=== PATIENT | female | born 1960 | race Caucasian/White ===

== ENCOUNTER 2019-10-02 00:12 | Outpatient (REF) | payer BC, SELFPAY | END 2019-10-02 00:32 | LOC: NCHCN 00:12 | PROVIDERS: PCP Nurse Practitioner Adult Health; Visit Provider Family Medicine | DX: N39.0 Urinary tract infection, site not specified (principal) | CPT/HCPCS: 87086 ==

== ENCOUNTER 2020-04-11 20:19 | Outpatient (REF) | payer BC, SELFPAY ==
[2020-04-11 15:10] LABS: HCT 44.3 % (36.0-46.0); HGB 14.1 g/dL (12.0-15.5); Mean Corp. HGB Concentration 31.8 g/dL (32.0-36.0); Mean Corpuscular Hemoglobin 27.1 pg (27.0-33.0); Mean Platelet Volume 10.7 fL (8.0-11.0); Platelet Count 223 x1000/uL (130-400); RBC 5.21 m/cumm (4.00-5.20); RBC Distribution Width 16.9 % (11.7-14.6); White Blood Cell Count 5.61 k/cumm (4.4-10.8)
[2020-04-11 16:06] LABS: ALT 116 U/L (14-59); AST 134 U/L (15-37); Albumin 4.2 g/dL (3.4-5.0); Alkaline Phosphatase 78 U/L (46-116); BUN 11 mg/dL (7-18); Bilirubin, Total 0.5 mg/dL (0.2-1.0); CREATININE 0.65 mg/dL (0.55-1.02); Calcium 9.3 mg/dL (8.5-10.1); Chloride 102 mmol/L (98-107); Glucose 154 mg/dL (74-106); Potassium 3.8 mmol/L (3.5-5.1); Sodium 139 mmol/L (136-145); Total Protein 7.6 g/dL (6.4-8.2); Vitamin B12 798 pg/mL (193-986)
[2020-04-12 13:55] LABS: Syphilis Serology (RPR) Negative (Negative)
== END 2020-04-11 20:39 ==
LOC: NCHCN 20:19
PROVIDERS: PCP Nurse Practitioner Adult Health; Visit Provider Family Medicine
DX: R41.3 Other amnesia (principal); E03.9 Hypothyroidism, unspecified; E11.9 Type 2 diabetes mellitus without complications; K75.81 Nonalcoholic steatohepatitis (NASH)
CPT/HCPCS: 80053; 85027; 82607; 84443; 86592

== ENCOUNTER 2023-03-06 18:18 | Outpatient (REF) | payer OTHER, SELFPAY ==
[2023-03-06 19:58] LABS: Albumin 4.2 g/dL (3.4-5.0); Calcium 9.4 mg/dL (8.5-10.1)
[2023-03-06 20:20] LABS: Vitamin D 25 Total 55.7 ng/mL (30-100)
[2023-03-08 02:13] LABS: Parathyroid Hormone,Intact 13 pg/mL (19-88)
== END 2023-03-06 18:19 | disposition home or self-care (01) ==
LOC: NCHCN 18:18
PROVIDERS: PCP Nurse Practitioner Adult Health; Visit Provider Family Medicine
DX: E83.52 Hypercalcemia (principal); E03.9 Hypothyroidism, unspecified
CPT/HCPCS: 82306; 82040; 82310; 83970

== ENCOUNTER 2023-06-04 16:20 | Outpatient (REF) | payer OTHER, SELFPAY ==
--- NOTE | 2023-06-04 16:00 | PAPFT_PTH ---
PATIENT: Evangelina Barroso LOC: [facility]#:[id number] AGE/SX: 63/F ROOM: RE06/04/[address]: Saud Betts : 1960 BED: DIS: 06/04/2023 SPEC #: [id number] RECD: 06/05/23 12:44 STATUS: ERIC RERaleigh #: [id number] RAPHAEL: 06/04/23 16:[address]: Saud Betts DEPT: [facility] Cytology RECD BY: Niru Saleh ENTERED: 06/05/23 12:44 SP TYPE: PAPFT OTHR DR: Ruth Manning Tissues: 1 - CX/ENDOCX FOR PAP SMEARS Procedures: PAP THIN PREP/[facility] Screening HPV DNA PROBE Comments: [id number]
== END 2023-06-04 16:21 | disposition home or self-care (01) ==
LOC: NCHCN 16:20
PROVIDERS: PCP Nurse Practitioner Adult Health; Visit Provider Family Medicine
DX: Z00.00 Encounter for general adult medical examination without abnormal findings (principal); Z12.4 Encounter for screening for malignant neoplasm of cervix; Z11.51 Encounter for screening for human papillomavirus (HPV); F31.9 Bipolar disorder, unspecified; F41.8 Other specified anxiety disorders; E55.9 Vitamin D deficiency, unspecified
CPT/HCPCS: 88142; 87624

== ENCOUNTER 2024-12-21 15:28 | Outpatient (REF) | payer OTHER, SELFPAY ==
[2024-12-21 16:36] LABS: COMMENT (LAB VIEW ONLY) 86.23 mg/dL; Microalb ug/mg Crea 15.5 ug/mg Cr
== END 2024-12-21 15:29 | disposition home or self-care (01) ==
LOC: NCHCN 15:28
PROVIDERS: PCP Nurse Practitioner Adult Health; Visit Provider Student in an Organized Health Care Education/Training Program
DX: E11.9 Type 2 diabetes mellitus without complications (principal)
CPT/HCPCS: 82043; 82570

== ENCOUNTER 2025-03-22 12:58 | Outpatient (REF) | payer OTHER, SELFPAY ==
[2025-03-22 17:09] LABS: HCT 41.6 % (36.0-46.0); HGB 13.2 g/dL (11.2-15.7); MCH 27.2 pg (27.0-33.0); MCHC 31.7 % (32.0-36.0); MCV 86 fL (80-95); Platelet Count 217 10^3/uL (130-400); RBC 4.86 10^6/uL (3.93-5.22); RDW 15.9 % (11.7-14.6); RDW-SD 49.8 fL; WBC 4.62 10^3/uL (4.4-10.8)
[2025-03-22 17:27] LABS: ALT 114 U/L (14-59); AST 99 U/L (15-37); Albumin 3.8 g/dL (3.4-5.0); Alkaline Phosphatase 64 U/L (46-116); Anion Gap 10.7 mmol/L (3-11); BUN 11 mg/dL (7-18); Bilirubin, Total 0.3 mg/dL (0.2-1.0); CO2 25.3 mmol/L (21.0-32.0); CREATININE 0.7 mg/dL (0.55-1.02); Calcium 9.1 mg/dL (8.5-10.1); Chloride 102 mmol/L (98-107); Estimated GFR 95.32 (mL/min/1.73m2); Glucose 213 mg/dL (74-106); NT-proBNP 45 pg/mL (<300); Potassium 4.1 mmol/L (3.5-5.1); Sodium 138 mmol/L (136-145); Total Protein 6.8 g/dL (6.4-8.2)
[2025-03-22 18:07] LABS: Cholesterol 258 mg/dL (<200); Ferritin 36 ng/mL (8-252); HDL Cholesterol 24 mg/dL (>or=50); Triglyceride 657 mg/dL (<150)
[2025-03-22 18:18] LABS: LDL CHOLESTEROL 142 mg/dL (<100)
[2025-03-22 18:31] LABS: Iron 35 ug/dL (50-170); Total Iron Binding Capacity 439 ug/dL (250-450); Transferrin Sat 8 % (15-50)
== END 2025-03-22 12:59 | disposition home or self-care (01) ==
LOC: NCHCN 12:58
PROVIDERS: PCP Nurse Practitioner Adult Health; Visit Provider Student in an Organized Health Care Education/Training Program
DX: E83.110 Hereditary hemochromatosis (principal); R07.9 Chest pain, unspecified
CPT/HCPCS: 80053; 80061; 83721; 85027; 82728; 83540; 83550; 83880